=== PATIENT | female | born 1990 | race Caucasian/White ===

== ENCOUNTER → 2017-01-10 | Outpatient (CLI) | payer MEDICAID ==
--- NOTE | 2017-01-10 09:01 | WWHP ---
DATE OF SERVICE: 01/10/2017 CHIEF COMPLAINT: The patient is here for her routine gynecologic exam and for control. HPI: This is 26-year-old G0 with an LMP of 12/25/16. She had been taking 09/01. Her prescription ran out about a month ago. She has been using condoms since then. She states she has not had any problem with control pills. She had been on control pills for about 6 months. PAST MEDICAL HISTORY: Unremarkable. MEDICATIONS: 09/01 one daily up until one month ago. ALLERGIES: No known drug allergies. PAST SURGICAL HISTORY: [place] teeth removed in the past. PAST STEAM PRESS OPERATOR HISTORY: Menarche was at age 15. Menses had been regular every month. She has no history of STDs. SOCIAL HISTORY: She denies tobacco, alcohol, and drug use. She was recently in 10/27. 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 FAMILY HISTORY: Unremarkable. REVIEW OF SYSTEMS: Weight has been stable. She denies respiratory, cardiac, or GI problems. PHYSICAL EXAM: Blood pressure 124/87. Height 5 feet 10 inches, weight 162 pounds. Temperature 97.7, pulse 74. This a well-developed, well-nourished white female who is alert and oriented x3 in no acute distress. HEENT is within normal limits. NECK: Supple without mass thyromegaly. CHEST AND LUNGS: Clear to auscultation. HEART: Regular rate and rhythm. Breasts are without mass or discharge. Axillary exam is negative for adenopathy. BACK: Negative for CVA tenderness. ABDOMEN: Soft, nontender, without palpable masses. PELVIC EXAM: Normal external genitalia. Cervix and vagina appear normal. There is no unusual discharge. There is no cervical motion tenderness. The uterus is midposition, nongravid size and nontender. There are no palpable adnexal masses or tenderness. Rectal exam was deferred. EXTREMITIES: Nontender. IMPRESSION: A 26-year-old gynecology healthy female requesting to be restarted on oral contraception. PLAN: 1. Pap smear was performed. 2. Self breast examination was discussed. 3. GC and Chlamydia screening from the cervix was obtained. 4. The patient will be restarted on 09/01 and she will begin this on the Sunday following the onset of her next normal menstrual period. She will also use condoms through the first pack of pills. 5. She will return in one year.
== END | disposition home or self-care (01) ==
LOC: WWCWWP 07:58
PROVIDERS: ATTEND Obstetrics & Gynecology
DX: Z53.9 Procedure and treatment not carried out, unspecified reason (principal)

== ENCOUNTER → 2019-02-25 | Outpatient (CLI) | payer MEDICAID ==
[2019-02-25 12:32] LABS: African American GFR (CKD) 138.6 (60.0-200.0)
[2019-02-25 12:39] LABS: Vitamin D 25 Hydroxy 17.8 ng/mL (30.0-100.0)
[2019-02-25 12:40] LABS: HCG,Quantitative Serum 3.9 mIU/mL; T4, Free (Free Thyroxine) 1.2 ng/dL (0.80-1.80)
[2019-02-25 14:19] LABS: Thyroid Peroxidase Antibodies <28.0 U/mL (0.0-60.0)
[2019-02-26 06:59] LABS: Varicella IgM Antibody 0.46 INDEX (<=0.90)
[2019-02-26 14:07] LABS: Anti-Mullerian Hormone 6.32 ng/mL (0.69 - 13.39)
== END | disposition home or self-care (01) ==
LOC: LABWHC1 07:27
PROVIDERS: ATTEND Physician Assistant
DX: N92.6 Irregular menstruation, unspecified (principal)
CPT/HCPCS: 36415; 82306; 82397; 82565; 82670; 82947; 83001; 83036; 83525; 84146; 84402; 84403; 84439; 84443; 84450; 84460; 84481; 84520; 84702; 86376; 86762; 86787; 86800; 86850; 86900; 86901

== ENCOUNTER → 2019-03-18 | Outpatient (CLI) | payer MEDICAID | END | disposition home or self-care (01) | LOC: LABWHC1 07:20 | PROVIDERS: ATTEND Obstetrics & Gynecology Reproductive Endocrinology | DX: E03.9 Hypothyroidism, unspecified (principal) | CPT/HCPCS: 36415; 84443 ==

== ENCOUNTER → 2019-03-26 | Outpatient (CLI) | payer MEDICAID ==
[2019-03-26 08:27] LABS: Basophils % (A) 0 %; Eosinophils # (A) 0.1 k/uL (0-0.7); Eosinophils % (A) 2 %; HCT 39.6 % (34.0-46.0); HGB 13.3 gm/dL (11.4-16.0); Lymphocytes # (A) 2.8 k/uL (1.0-4.8); Lymphocytes % (A) 34 %; MCH 30.6 pg (25.0-35.0); MCHC 33.7 g/dL (31.0-37.0); MCV 90.8 fL (80.0-100.0); Monocytes # (A) 0.4 k/uL (0-1.0); Monocytes % (A) 5 %; Neutrophils # (A) 4.5 k/uL (1.3-7.7); Neutrophils % (A) 56 %; Platelet Count 287 k/uL (150-450); RBC 4.36 m/uL (3.80-5.40); RDW 14.4 % (11.5-15.5)
== END ==
LOC: LABPAT 07:36
PROVIDERS: ATTEND Obstetrics & Gynecology Obstetrics
DX: Z01.812 Encounter for preprocedural laboratory examination (principal); N84.0 Polyp of corpus uteri
CPT/HCPCS: 36415; 85025

== ENCOUNTER 2019-04-04 10:29 | Day surgery (SDC) | payer MEDICAID ==
[~2019-04-04 10:29] MED LIST: DEXAMETHASONE SOD PHOSPHATE 10 MG/ML 1 ML VIAL IV ONE; HYDROmorphone 0.5 MG/0.5 ML SYRINGE IVP PRN; LACTATED RINGERS 1,000 ML IV SCH; LIDOCAINE 1% 20 ML VIAL (10MG/ML) FOR IV START INTRADERMA PRN; MIDAZOLAM 2 MG/2 ML VIAL IV PRN; ONDANSETRON 4 MG/2 ML VIAL IVP ONE; Pre Op ABX Message 1 EACH MISC MISCELLANE ONE; SCOPOLAMINE 1.5MG/72HR PATCH TRANSDERM ONE
[2019-04-04] MEDS ORDERED: LACTATED RINGERS 1,000 ML IV ONE (11:01)
[2019-04-04] MEDS ORDERED: PROPOFOL 10 MG/ML 20 ML VIAL IV ONE (12:40)
[2019-04-04] MEDS ORDERED: LIDOCAINE 1% INJ 10MG/ML (20 ML MDV) ONE (12:40)
[2019-04-04] MEDS ORDERED: fentaNYL (PF) 50 MCG/ML 2 ML AMP ONE (12:40)
[2019-04-04] MEDS ORDERED: KETOROLAC 30 MG/ML 1 ML VIAL ONE (12:40)
[2019-04-04] MEDS ORDERED: MIDAZOLAM 2 MG/2 ML VIAL ONE (12:40)
[2019-04-04 13:20] VITALS: TEMP 98.5
--- NOTE | 2019-04-04 13:21 | P.OP ---
Date of Procedure: 04/04/19 Preoperative Diagnosis: Endometrial polyp Postoperative Diagnosis: Same Procedure(s) Performed: Hysteroscopy, dilation and curettage Anesthesia: MAC Surgeon: Anjelica Powell Estimated Blood Loss (ml): 5 IV fluids (ml): 200 Urine output (ml): 100 Pathology: other (An immature polyp, endometrial curettings) Condition: stable Disposition: PACU Indications for Procedure: Patient is really undergoing treatments for fertility with Dr. Sybil Santoyo MD Patient had an ultrasound and SIS revealing a polyp which she desires removal for fertility reasons. Operative Findings: Normal appearing endometrial cavity within the junction between the cavity and the cervix is small polyp was noted no other appendectomy maladies were noted. Description of Procedure: Patient was seen in the preoperative area and informed consent was obtained. Patient was counseled on the surgery and all cautions were answered. Patient was taken operating suite were general anesthesia was obtained without difficulty by the anesthesia department. She was then prepped and draped in the normal sterile fashion in the dorsal lithotomy position. A red rubber catheter was then used to drain the bladder clear yellow urine. Weighted speculum was placed in the posterior vaginal vault the anterior lip the cervix is visualized and grasped with a single-tooth tenaculum the endocervical canal was then dilated to 14-Persian. Hysteroscope was placed through the cervix and toward the endometrial cavity the above-noted findings were visualized. At this time hysteroscope was removed after much multiple pictures were taken. A gentle curettage was performed until a gritty texture was noted in all 4 quadrants of the endometrial cavity. The polyp was noted to be removed. The tooth tenaculum was taken off of the anterior lip of the cervix no bleeding was noted. All incisions were then removed from the patient's vaginal vault. Patient tolerated procedure well all counts were correct 2 and she was taken to the recovery suite awake and in stable condition.
[2019-04-04 13:51] VITALS: PULSE 68; RESP 18
[2019-04-04 14:08] VITALS: BP 110/71
== END 2019-04-04 14:34 | disposition home or self-care (01) ==
LOC: OR 10:29
PROVIDERS: ATTEND Obstetrics & Gynecology Obstetrics
DX: N84.0 Polyp of corpus uteri (principal); E07.9 Disorder of thyroid, unspecified; Z79.890 Hormone replacement therapy
CPT/HCPCS: 58558; 81025; 88305; J2250; J1100; J2405; J2001; J3010; J1885; J2704

== ENCOUNTER → 2019-04-25 | Outpatient (CLI) | payer MEDICAID | END | disposition home or self-care (01) | LOC: LABWHC1 07:46 | PROVIDERS: ATTEND Obstetrics & Gynecology Reproductive Endocrinology | DX: E03.9 Hypothyroidism, unspecified (principal) | CPT/HCPCS: 36415; 84443 ==

== ENCOUNTER → 2019-05-16 | Outpatient (CLI) | payer MEDICAID | END | disposition home or self-care (01) | LOC: LABWHC1 07:44 | PROVIDERS: ATTEND Obstetrics & Gynecology Reproductive Endocrinology | DX: E03.9 Hypothyroidism, unspecified (principal) | CPT/HCPCS: 36415; 84443 ==

== ENCOUNTER → 2019-06-17 | Outpatient (CLI) | payer MEDICAID | END | disposition home or self-care (01) | LOC: LABWHC1 07:31 | PROVIDERS: ATTEND Obstetrics & Gynecology Reproductive Endocrinology | DX: E03.9 Hypothyroidism, unspecified (principal) | CPT/HCPCS: 36415; 84443 ==

== ENCOUNTER → 2019-07-25 | Outpatient (CLI) | payer MEDICAID ==
[2019-07-25 08:07] LABS: HCT 35.4 % (34.0-46.0); MCH 30.4 pg (25.0-35.0); MCV 89.4 fL (80.0-100.0); Mean Platelet Volume 7.6; Platelet Count 218 k/uL (150-450); RBC 3.96 m/uL (3.80-5.40); RDW 12.3 % (11.5-15.5); WBC 8.8 k/uL (3.8-10.6)
[2019-07-25 11:57] LABS: T4, Free (Free Thyroxine) 1.2 ng/dL (0.80-1.80)
[2019-07-25 12:20] LABS: Hepatitis B Surface Antigen Non-Reactive (Non-Reactive)
[2019-07-25 15:18] LABS: HIV 1 AB Non-Reactive (Non-Reactive); HIV 2 AB Non-Reactive (Non-Reactive); HIV AB P24 Non-Reactive (Non-Reactive); HIV P24 AG Non-Reactive (Non-Reactive)
== END | disposition home or self-care (01) ==
LOC: LABWHC1 07:40
PROVIDERS: ATTEND Clinical Nurse Specialist Women's Health
DX: Z34.01 Encounter for supervision of normal first pregnancy, first trimester (principal)
CPT/HCPCS: 36415; 84439; 84443; 84481; 85027; 86762; 86780; 86850; 86900; 86901; 87086; 87340; 87390

== ENCOUNTER → 2019-11-19 | Outpatient (CLI) | payer MEDICAID ==
[2019-11-19 12:10] LABS: HCT 34.6 % (34.0-46.0); HGB 11.8 gm/dL (11.4-16.0); MCH 31.5 pg (25.0-35.0); MCHC 34.1 g/dL (31.0-37.0); MCV 92.2 fL (80.0-100.0); Mean Platelet Volume 7.8; Platelet Count 244 k/uL (150-450); RBC 3.75 m/uL (3.80-5.40); RDW 13.3 % (11.5-15.5); WBC 8.4 k/uL (3.8-10.6)
[2019-11-19 15:37] LABS: T4, Free (Free Thyroxine) 1.4 ng/dL (0.80-1.80)
== END | disposition home or self-care (01) ==
LOC: LABWHC1 10:32
PROVIDERS: ATTEND Obstetrics & Gynecology Obstetrics
DX: Z36.9 Encounter for antenatal screening, unspecified (principal)
CPT/HCPCS: 36415; 82950; 84439; 84443; 85027; 86850

== ENCOUNTER 2020-02-11 06:00 | Inpatient (IN) | payer MEDICAID ==
[2020-02-11] MEDS ORDERED: CITRIC ACID-SODIUM CITRATE 15 ML CUP PO ONE (11:13)
[2020-02-11] MEDS: LACTATED RINGERS 1,000 ML IV SCH ×2 (11:34→17:05)
[2020-02-11 11:54] LABS: Basophils % (A) 0 %; Eosinophils # (A) 0.2 k/uL (0-0.7); Eosinophils % (A) 2 %; HCT 33.6 % (34.0-46.0); HGB 11.3 gm/dL (11.4-16.0); Lymphocytes # (A) 1.9 k/uL (1.0-4.8); Lymphocytes % (A) 24 %; MCH 29.7 pg (25.0-35.0); MCHC 33.5 g/dL (31.0-37.0); MCV 88.4 fL (80.0-100.0); Mean Platelet Volume 8.2; Monocytes # (A) 0.5 k/uL (0-1.0); Monocytes % (A) 6 %; Neutrophils # (A) 5.2 k/uL (1.3-7.7); Neutrophils % (A) 66 %; Platelet Count 212 k/uL (150-450); RDW 13.7 % (11.5-15.5)
[2020-02-11] MEDS ORDERED: MORPHINE SULFATE (PF) 0.3 MG/0.3 ML SYR ONE (12:10)
[2020-02-11] MEDS ORDERED: OXYTOCIN 10 UNIT/ML 1 ML VIAL ONE (12:10)
[2020-02-11] MEDS ORDERED: ONDANSETRON 4 MG/2 ML VIAL ONE (12:10)
--- NOTE | 2020-02-11 13:01 | P.HPOB ---
History of Present Illness H&P Date: 02/11/20 Chief Complaint: IUP at 40 and 0, LGA This is a pleasant 29-year-old 1 para 0 at 40-0/7 weeks that presented to labor and delivery for scheduled primary secondary to LGA, ultrasound was done in the office this morning revealing a 10 pound infant, over 4500 g, greater than the 99th percentile. Of note the abdominal circumference was greater than the 99th percentile. Patient was counseled on induction of labor versus primary given size, risks of shoulder dystocia were discussed and general and all questions were answered. Patient decided to proceed with primary given size. Patient had been receiving routine care with myself since the first trimester. This care is been essentially uncomplicated. Today patient notes good movement she denies contractions or vaginal bleeding. Review of Systems Constitutional: Denies fatigue, Denies fever Ears, nose, mouth and throat: Denies headache Cardiovascular: Reports leg edema Respiratory: Denies dyspnea Gastrointestinal: Denies constipation, Denies diarrhea, Denies nausea, Denies vomiting Genitourinary: Reports Past Medical History Past Medical History: Thyroid Disorder Additional Past Medical History / Comment(s): CURRENT: UTERINE POLYP History of Any Multi-Drug Resistant Organisms: None Reported Additional Past Surgical History / Comment(s): WISDOM TEETH. D & C Past Anesthesia/Blood Transfusion Reactions: No Reported Reaction Additional Past Anesthesia/Blood Transfusion Reaction / Comment(s): HAS NEVER HAD GENERAL ANETHESIA Past Psychological History: No Psychological Hx Reported Smoking Status: Never smoker Past Alcohol Use History: Rare Past Drug Use History: None Reported - Past Family History Mother Family Medical History: No Reported History Medications and Allergies Home Medications Medication Instructions Recorded Confirmed Type Cholecalciferol (Vitamin D3) 1 tab PO DAILY 03/31/19 02/11/20 History [Vitamin D3] Levothyroxine Sodium [Synthroid] 50 mcg PO QAM 03/31/19 02/11/20 History Multivitamins, Thera [Multivitamin 1 tab PO DAILY 03/31/19 02/11/20 History (formulary)] Allergies Allergy/AdvReac Type Severity Reaction Status Date / Time No Known Allergies Allergy Verified 02/11/20 11:23 Exam Osteopathic Statement: *. No significant issues noted on an osteopathic structural exam other than those noted in the History and Physical/Consult. 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 in no acute distress, breathing is noted to be nonlabored, heart has regular rate and rhythm, abdomen is gravid, heart tones are be category 1 with no contractions, on cervical exam she is /50/high station Results Result Diagrams: 02/11/20 11:34 Abnormal Lab Results - Last 24 Hours (Table) 02/11/20 Range/Units 11:34 Hgb 11.3 L (11.4-16.0) gm/dL Hct 33.6 L (34.0-46.0) % Assessment and Plan (1) Term Current Visit: Yes Status: Acute Code(s): Z34.90 - ENCNTR FOR SUPRVSN OF N ORMAL , UNSP, UNSP TRIMESTER SNOMED Code(s): 37361546 (2) LGA (large for gestational age) fetus Current Visit: Yes Status: Acute Code(s): ELY2021 - SNOMED Code(s): 683089425 Plan: Planned primary given ultrasound estimation of GERD in the 99th percentile, 10 pounds. Patient is counseled on risks are reviewed and patient states understanding. We'll proceed with primary .
[2020-02-11] MEDS ORDERED: METOCLOPRAMIDE 5 MG/ML 2 ML VIAL IVP PRN (13:05)
[2020-02-11] MEDS ORDERED: NALOXONE 0.4 MG/ML 1 ML VIAL IV PRN (13:05)
[2020-02-11] MEDS ORDERED: ZOLPIDEM 5 MG TAB PO PRN (13:05)
[2020-02-11] MEDS ORDERED: diphenhydrAMINE 50 MG CAP PO PRN (13:05)
[2020-02-11] MEDS ORDERED: SIMETHICONE 80 MG CHEWABLE PO PRN (13:05)
[2020-02-11] MEDS ORDERED: ONDANSETRON 4 MG/2 ML VIAL IVP PRN (13:05)
[2020-02-11] MEDS ORDERED: diphenhydrAMINE 50 MG/ML 1 ML VIAL IVP PRN ×2 (13:05)
--- NOTE | 2020-02-11 13:05 | P.OP ---
Date of Procedure: 02/11/20 Preoperative Diagnosis: IUP at 40 and 0/sevenths weeks, LGA Postoperative Diagnosis: Same Procedure(s) Performed: Primary low transverse section Anesthesia: spinal Surgeon: Anjelica Powell Reefer Truck Driver #1: Tara Hernandez Estimated Blood Loss (ml): 600 IV fluids (ml): 900 Urine output (ml): 200 Pathology: none sent Condition: stable Disposition: PACU Indications for Procedure: This pleasant 29-year-old 1 para 0 at 40-0/7 weeks had an ultrasound today revealing a greater than 4500 g fetus, 10 pounds, greater than the 99th percentile. Patient was counseled on primary , versus induction of labor and received shoulder dystocia given size. Patient elected primary . Operative Findings: Normal uterus tubes and ovaries were appreciated. Viable male delivered at 1227, weight of 9 lbs. 1 oz. with Apgars of 9 and 9 at one and 5 minutes respectively. Description of Procedure: Patient was taken back to the operating suite where spinal anesthesia was found to be adequate by the anesthesia department. She was then prepped and draped in normal sterile fashion in the dorsal supine position. A Pfannenstiel skin incision was then made with the scalpel and carried through to the underlying layer of fascia. The fascia was then incised and extended laterally. The rectus muscles were then in the midline, the peritoneum was then identified and entered. The peritoneal incision was then extended superiorly and inferiorly with good visualization the bladder. The bladder blade was then inserted into the pelvis. The vesicouterine peritoneum was identified and the bladder flap was then created using sharp and blunt dissection. At this time the hysterotomy incision was made amniotomy was performed and clear fluid was obtained. The fetus encountered in a vertex presentation. was delivered in the usual fashion and handed off to awaiting RN. Prior to this the umbilical cord then doubly clamped and cut. The placenta was then delivered manually intact with a three-vessel cord being noted. The hysterotomy incision was then closed with 0 Vicryl in a running locked fashion 2. Hemostasis was appreciated. The pelvis then copiously irrigated, the hysterotomy site was inspected hemostasis was appreciated once again. The uterus was then returned to the abdomen. The gutters were then cleared of all clots and debris and the hysterotomy incision was inspected once again. At this time the fascia was then closed with 0 Vicryl in a running fashion from one lateral edge the other. Subcu tissue was irrigated and found to be hemostatic. This was closed with 3-0 Vicryl. The skin was then closed with 4-0 Vicryl in a subcuticular fashion. Steri-Strips and sterile dressings were applied as needed. All counts were noted be correct 2 patient and tolerated delivery well and are resting comfortably.
[2020-02-11] MEDS ORDERED: OXYTOCIN 20 UNITS/1000 ML NS 1,000 ML IV SCH (13:15)
[2020-02-11] MEDS ORDERED: ACETAMINOPHEN IV (For NPO) 1,000 MG in EMPTY BAG 1 BAG IVPB ONE (13:30)
[2020-02-11] MEDS ORDERED: IBUPROFEN IV 800 MG in SODIUM CHLORIDE 0.9% 250 ML IV ONE (13:30)
[2020-02-11] MEDS: diphenhydrAMINE 25 MG CAP PO PRN (15:30)
[2020-02-12] MEDS: LEVOTHYROXINE 50 MCG TAB PO SCH (05:45)
[2020-02-12 06:51] LABS: Basophils % (A) 0 %; Eosinophils # (A) 0.1 k/uL (0-0.7); Eosinophils % (A) 1 %; HCT 28.8 % (34.0-46.0); Hypochromasia Slight; Lymphocytes # (A) 1.4 k/uL (1.0-4.8); Lymphocytes % (A) 16 %; MCH 29.9 pg (25.0-35.0); MCHC 33.5 g/dL (31.0-37.0); MCV 89.2 fL (80.0-100.0); Mean Platelet Volume 8.2; Monocytes # (A) 0.4 k/uL (0-1.0); Monocytes % (A) 5 %; Neutrophils # (A) 6.4 k/uL (1.3-7.7); Neutrophils % (A) 77 %; Platelet Count 179 k/uL (150-450); RBC 3.23 m/uL (3.80-5.40); RDW 13.7 % (11.5-15.5); WBC 8.3 k/uL (3.8-10.6)
[2020-02-12 06:57] LABS: HGB 9.6 gm/dL (11.4-16.0)
[2020-02-12] MEDS: SENNOSIDES-DOCUSATE SODIUM 1 EACH TAB PO SCH ×3 (07:44→19:55)
[2020-02-12] MEDS: IBUPROFEN 600 MG TAB PO PRN ×3 (07:44→21:21)
[2020-02-12] MEDS: MULTIVITAMINS, THERA 1 EACH TAB PO SCH (07:44)
--- NOTE | 2020-02-12 08:31 | P.PNOBGPC ---
Subjective - Subjective Principal diagnosis: POD 1 LTCS, LGA Interval history: Patient is doing well. Overnight she states her pain is well-controlled. She is ambulating and voiding without difficulty. She is tolerating a regular diet. She notes her lochia to be scant. She is breast-feeding without difficulty. Patient reports: Reports appetite normal, Reports voiding normally, Reports pain well controlled, Reports ambulating normally : doing well, nursing well Objective - Vital Signs Latest vital signs: Vital Signs Temp Pulse Resp BP Pulse Ox 02/12/20 04:00 98.0 F 77 16 110/68 02/12/20 00:00 98.1 F 66 16 113/77 100 02/11/20 20:00 98.5 F 74 16 117/72 95 02/11/20 16:00 97.7 F 68 16 130/89 98 02/11/20 15:05 96.9 F L 65 14 116/82 97 02/11/20 14:35 60 14 126/80 98 02/11/20 14:05 64 14 112/72 98 02/11/20 13:50 96.2 F L 62 14 114/71 97 02/11/20 13:35 70 14 107/61 97 02/11/20 13:20 71 14 104/61 02/11/20 13:05 97 F L 83 14 102/58 99 Intake and Output 02/11/20 02/12/20 02/12/20 22:59 06:59 14:59 Output Total 350 Balance -350 Output: Urine 350 Uretheral ([place]) 350 Other: # Emeses 2 - Exam Extremities: Present: normal Abdomen: Present: normal appearance, soft Incision: Present: intact Uterus: Present: normal, firm - Labs Labs: Abnormal Lab Results - Last 24 Hours (Table) 02/11/20 02/12/20 Range/Units 11:34 06:22 RBC 3.23 L (3.80-5.40) m/uL Hgb 11.3 L 9.6 L D (11.4-16.0) gm/dL Hct 33.6 L 28.8 L (34.0-46.0) % Assessment and Plan (1) Term Current Visit: Yes Status: Acute Code(s): Z34.90 - ENCNTR FOR SUPRVSN OF NORMAL , UNSP, UNSP TRIMESTER SNOMED Code(s): 14474023 (2) LGA (large for gestational age) fetus Current Visit: Yes Status: Acute Code(s): PHD0758 - SNOMED Code(s): 596484510 (3) S/P section Current Visit: Yes Status: Acute Code(s): Z98.891 - HISTORY OF UTERINE SCAR FROM PREVIOUS SURGERY SNOMED Code(s): 537202596 Plan: This 29-year-old 1 now para 1 status post primary for suspected macrosomia with liveborn male 9 lbs. 1 oz. Patient is doing well postoperatively we will encourage increased ambulation today. Will plan to continue routine postoperative care and anticipate discharge home tomorrow.
[2020-02-12] MEDS: LACTATED RINGERS 1,000 ML IV SCH ×3 (09:08→09:09)
--- NOTE | 2020-02-12 09:16 | P.PN ---
Progress Note - Text Date: 02-12-20Time: 07:14 The patient is status post section Vital signs stable VAS: 0-10 Patient has no complaints of pain. The patient incurred some minimal itching yesterday, this itching is now subsiding. Pain meds to be managed by service.
[2020-02-12] MEDS: ACETAMINOPHEN TAB 325 MG TAB PO PRN ×2 (12:50→19:56)
[2020-02-12] MEDS: diphenhydrAMINE 25 MG CAP PO PRN (21:22)
[2020-02-13] MEDS: HYDROcodone/APAP 5-325MG 1 EACH TAB PO PRN ×2 (02:26→08:17)
[2020-02-13] MEDS: diphenhydrAMINE 25 MG CAP PO PRN (05:29)
[2020-02-13] MEDS: IBUPROFEN 600 MG TAB PO PRN (05:30)
[2020-02-13] MEDS: LEVOTHYROXINE 50 MCG TAB PO SCH (06:17)
[2020-02-13] MEDS: SENNOSIDES-DOCUSATE SODIUM 1 EACH TAB PO SCH (08:16)
[2020-02-13] MEDS: MULTIVITAMINS, THERA 1 EACH TAB PO SCH (08:17)
[2020-02-13 08:30] VITALS: BP 126/87; PULSE 63; RESP 16; TEMP 97.7
--- NOTE | 2020-02-13 09:36 | P.DS ---
Providers Date of admission: 02/11/20 11:13 Expected date of discharge: 02/13/20 Attending physician: Anjelica Powell Primary care physician: Stated None - Discharge Diagnosis(es) (1) Term Current Visit: Yes Status: Acute (2) LGA (large for gestational age) fetus Current Visit: Yes Status: Acute (3) S/P section Current Visit: Yes Status: Acute Hospital Course: This is a pleasant 29-year-old 1 now para 1 that presented to labor and delivery on 02/10 for primary secondary to suspected macrosomia. Patient was seen for routine visit on that today with an ultrasound result of a 10 lbs. 0 oz. , greater than 4500 g, greater than the 99th percentile. Of note the abdominal circumference was significantly enlarged. Risks were reviewed patient elected primary . For further details on the please see the operative report. Liveborn male was born at 1227, weight of 9 lbs. 1 oz. with Apgars of 9 and 9 at one and 5 minutes respectively. Patient has done well . On this post day #2 she is ambulating and voiding without difficulty. She is tolerating a regular diet without nausea or vomiting. She states her lochia is minimal. She is breast-feeding. She does does desire discharge home today. Patient Condition at Discharge: Good Plan - Discharge Summary New Discharge Prescriptions: No Action Multivitamins, Thera [Multivitamin (formulary)] 1 tab PO DAILY Levothyroxine Sodium [Synthroid] 50 mcg PO QAM Cholecalciferol (Vitamin D3) [Vitamin D3] 1 tab PO DAILY Discharge Medication List Cholecalciferol (Vitamin D3) [Vitamin D3] 1 tab PO DAILY 03/31/19 [History] Levothyroxine Sodium [Synthroid] 50 mcg PO QAM 03/31/19 [History] Multivitamins, Thera [Multivitamin (formulary)] 1 tab PO DAILY 03/31/19 [History] Follow up Appointment(s)/Referral(s): Anjelica Powell DO [Doctor of Osteopathic Medicine] - 2 Weeks Patient Instructions/Handouts: (DC), (GEN)
== END 2020-02-13 12:07 | disposition home or self-care (01) | DRG 788 ==
LOC: 4FBP 11:13
PROVIDERS: ADMIT Obstetrics & Gynecology Obstetrics; ATTEND Obstetrics & Gynecology Obstetrics
PROC: 10D00Z1 Extraction of Products of Conception, Low, Open Approach (ICD-10-PCS; principal; 2020-02-11 12:37)
DX: O36.63X0 Maternal care for excessive fetal growth, third trimester, not applicable or unspecified (principal); E07.9 Disorder of thyroid, unspecified; N84.0 Polyp of corpus uteri; O99.284 Endocrine, nutritional and metabolic diseases complicating childbirth; O99.89 Other specified diseases and conditions complicating pregnancy, childbirth and the puerperium; Z37.0 Single live birth; Z3A.40 40 weeks gestation of pregnancy; Z79.890 Hormone replacement therapy
CPT/HCPCS: 85025; 86850; 86870; 86880; 86900; 86901

== ENCOUNTER 2020-02-16 10:23 | Outpatient (CLI) | payer MEDICAID ==
[2020-02-16] MEDS ORDERED: hydrOXYzine HCL 50 MG/ML 1 ML VIAL IM PRN (10:28)
[2020-02-16 10:49] VITALS: PULSE 101; RESP 18; TEMP 96.8
[2020-02-16 10:55] LABS: Basophils % (A) 0 %; Eosinophils # (A) 0.3 k/uL (0-0.7); Eosinophils % (A) 4 %; HCT 33.2 % (34.0-46.0); HGB 10.9 gm/dL (11.4-16.0); Hypochromasia Slight; Lymphocytes # (A) 1.7 k/uL (1.0-4.8); Lymphocytes % (A) 22 %; MCH 29.2 pg (25.0-35.0); MCHC 32.8 g/dL (31.0-37.0); MCV 89.2 fL (80.0-100.0); Mean Platelet Volume 7.3; Monocytes # (A) 0.5 k/uL (0-1.0); Monocytes % (A) 6 %; Neutrophils # (A) 5.1 k/uL (1.3-7.7); Neutrophils % (A) 67 %; Platelet Count 313 k/uL (150-450); RBC 3.72 m/uL (3.80-5.40); RDW 14.1 % (11.5-15.5); WBC 7.7 k/uL (3.8-10.6)
[2020-02-16] MEDS ORDERED: LACTATED RINGERS 1,000 ML IV SCH (11:00)
[2020-02-16 11:03] LABS: ALT 21 U/L (4-34); AST 26 U/L (14-36); African American GFR (CKD) >90 (>60 ml/min/1.73 sqM); Albumin 3.4 g/dL (3.5-5.0); Alkaline Phosphatase 125 U/L (38-126); Anion Gap 7 mmol/L; Blood Urea Nitrogen 10 mg/dL (7-17); Carbon Dioxide 24 mmol/L (22-30); Chloride 107 mmol/L (98-107); Glucose 70 mg/dL (74-99); Non-African American GFR(CKD) >90 (>60 ml/min/1.73 sqM); Potassium 3.5 mmol/L (3.5-5.1); Sodium 138 mmol/L (137-145); Total Bilirubin 0.3 mg/dL (0.2-1.3); Total Protein 5.8 g/dL (6.3-8.2)
[2020-02-16 12:23] LABS: Appearance,Urine Clear (Clear); Bacteria,Urine Rare /hpf; Bilirubin,Urine Negative (Negative); Blood,Urine Moderate (Negative); Color,Urine Light Yellow; Glucose,Urine (UA) Negative (Negative); Ketones,Urine Negative (Negative); Leukocyte Esterase,Urine Negative (Negative); Nitrite,Urine Negative (Negative); PH, Urine 6.5 (5.0-8.0); Protein,Urine Negative (Negative); RBC,Urine 2 /hpf (0-5); Specific Gravity,Urine 1.004 (1.001-1.035); Squamous Epithelial Cell,Urine <1 /hpf (0-4); Urobilinogen,Urine <2.0 mg/dL (<2.0); WBC,Urine 1 /hpf (0-5)
--- NOTE | 2020-03-07 12:41 | P.MSEPDOC ---
Presenting Problems - Arrival Data Date of Arrival on Unit: 02/16/20 Time of Arrival on Unit: 10:23 Mode of Transport: Ambulatory - Complaint OB-Reason for Admission/Chief Complaint: Other Comment: pt presents to triage per Dr. Powell for rash that is on her arms, trunck, back, and lower legs and feet that has been getting worse for the last 5 days Medical History - Information : 1 Para: 1 Term: 1 : 0 Abortions: Spontaneous or Elective: 0 Number of Living Children: 0 - Gestational Age Gestational Age by LATOYA (wks/days): 40 Weeks and 5 Days Review of Systems - Review of Systems Constitutional: No problems Breast: No problems ENT: No problems Cardiovascular: No problems Respiratory: No problems Gastrointestinal: No problems Genitourinary: No problems Musculoskeletal: No problems Neurological: No problems Skin: Rash, Itching Vital Signs - Temperature Temperature: 96.8 F Temperature Source: Temporal Artery Scan - Pulse Right Brachial Pulse Rate: 101 Pulse Assessment Method: Automatic Cuff - Respirations Respiratory Rate: 18 Oxygen Delivery Method: Room Air Medical Screen Scoring (Pre) - Uterine Contractions Frequency: N/A Duration: N/A Intensity: N/A - Maternal Vital Signs Maternal Temperature: N/A Maternal Blood Pressure: N/A Signs of Preeclampsia: N/A Maternal Respirations: N/A - Maternal Trauma Maternal Trauma: N/A - Total Score - Baby A Total Score - Baby A: 0 - Total Score - Baby B Total Score - Baby B: 0 - Total Score - Baby C Total Score - Baby C: 0 - Level of Risk - Baby A Level of Risk - Baby A: Low (0-5) - Level of Risk - Baby B Level of Risk - Baby B: Low (0-5) - Level of Risk - Baby C Level of Risk - Baby C: Low (0-5) Physician Notification (Pre) - Physician Notified Physician Notified Date: 02/16/20 Physician Notified Time: 10:25 New Order Received: Yes - Notification Comment Comment: draw cbc, cmp, and obtain ua, fluid bolus of LR Medical Screen Scoring (Post) - Maternal Vital Signs Maternal Temperature: N/A Maternal Blood Pressure: N/A Signs of Preeclampsia: N/A Maternal Respirations: N/A - Pain Assessment Pain Location and Character: Generalized Pain Scale Used: Numeric (1 - 10) Pain Intensity: 2 Pain Management Goal: 2 Pain Behavior: Vocalization - Maternal Trauma Maternal Trauma: N/A - Total Score Total Score - Baby A: 0 Total Score - Baby B: 0 Total Score - Baby C: 0 - Post Treatment Level of Risk Post Treatment Level of Risk - Baby A: Low (0-5) Post Treatment Level of Risk - Baby B: Low (0-5) Post Treatment Level of Risk - Baby C: Low (0-5) Physician Notification (Post) - Physician Notified Physician/Practitioner Notified:: marleny Spoke With: marleny - Notification Comment Comment: dr bell Disposition - Disposition OB Disposition: Physician follow up in office, Discharge to home Discharge Date: 02/16/20 Discharge Time: 12:25 I agree with the RN Medical Screening Exam: Yes Risk & Benefit of care provided described in d/c instruction: Yes Diagnosis: RASH AND OTHER NONSPECIFIC SKIN ERUPTION
== END 2020-02-16 12:51 | disposition home or self-care (01) ==
LOC: FBPOP 10:23
PROVIDERS: ATTEND Obstetrics & Gynecology Obstetrics
DX: O99.89 Other specified diseases and conditions complicating pregnancy, childbirth and the puerperium (principal); R21 Rash and other nonspecific skin eruption; Z3A.40 40 weeks gestation of pregnancy
CPT/HCPCS: 99214; 96365; 96372; 80053; 85025; 81001; J3410

== ENCOUNTER → 2020-03-29 | Outpatient (CLI) | payer MEDICAID ==
[2020-03-29 15:46] LABS: T4, Free (Free Thyroxine) 1.2 ng/dL (0.80-1.80)
== END | disposition home or self-care (01) ==
LOC: LABWHC1 11:07
PROVIDERS: ATTEND Obstetrics & Gynecology Obstetrics
DX: E03.9 Hypothyroidism, unspecified (principal)
CPT/HCPCS: 36415; 84439; 84443

== ENCOUNTER → 2020-06-04 | Outpatient (CLI) | payer MEDICAID ==
[2020-06-04 11:12] LABS: T4, Free (Free Thyroxine) 1.1 ng/dL (0.80-1.80)
== END | disposition home or self-care (01) ==
LOC: LABWHC1 07:29
PROVIDERS: ATTEND Obstetrics & Gynecology Obstetrics
DX: E03.9 Hypothyroidism, unspecified (principal)
CPT/HCPCS: 36415; 84439; 84443

== ENCOUNTER → 2020-06-24 | Outpatient (CLI) | payer MEDICAID ==
[2020-06-24 09:21] LABS: HCT 35.2 % (34.0-46.0); HGB 11.8 gm/dL (11.4-16.0); MCH 28.8 pg (25.0-35.0); MCHC 33.6 g/dL (31.0-37.0); MCV 85.6 fL (80.0-100.0); Mean Platelet Volume 7.1; Platelet Count 252 k/uL (150-450); RBC 4.11 m/uL (3.80-5.40); RDW 14.3 % (11.5-15.5); WBC 8.6 k/uL (3.8-10.6)
[2020-06-24 14:51] LABS: T4, Free (Free Thyroxine) 1.1 ng/dL (0.80-1.80)
[2020-06-24 16:12] LABS: Hepatitis B Surface Antigen Non-Reactive (Non-Reactive)
== END | disposition home or self-care (01) ==
LOC: LABWHC1 07:23
PROVIDERS: ATTEND Obstetrics & Gynecology Obstetrics
DX: E03.9 Hypothyroidism, unspecified (principal)
CPT/HCPCS: 36415; 84439; 84443; 85027; 86762; 86780; 86850; 86900; 86901; 87086; 87340

== ENCOUNTER → 2020-10-13 | Outpatient (CLI) | payer MEDICAID ==
[2020-10-13 19:41] LABS: HCT 33.8 % (37.2-46.3); HGB 10.9 g/dL (12.0-15.0); MCH 30.8 pg (27.0-32.0); MCHC 32.2 g/dL (32.0-37.0); MCV 95.5 fL (80.0-97.0); Platelet Count 173 X 10*3/uL (140-440); RBC 3.54 X 10*6/uL (4.10-5.20); RDW 14.4 % (11.5-14.5); WBC 8.62 X 10*3/uL (4.50-10.00)
== END | disposition home or self-care (01) ==
LOC: LABWHC1 08:30
PROVIDERS: ATTEND Obstetrics & Gynecology Obstetrics
DX: Z36.9 Encounter for antenatal screening, unspecified (principal)
CPT/HCPCS: 36415; 82950; 84439; 84443; 85027; 86850; 86900; 86901

== ENCOUNTER 2020-12-29 09:57 | Inpatient (IN) | payer MEDICAID ==
[~2020-12-29 09:57] MED LIST changes: +CELLULOSE,OXIDIZED 1 EACH EACH MISCELLANE ONE; -DEXAMETHASONE SOD PHOSPHATE 10 MG/ML 1 ML VIAL IV ONE; -HYDROmorphone 0.5 MG/0.5 ML SYRINGE IVP PRN; -LACTATED RINGERS 1,000 ML IV SCH; -LIDOCAINE 1% 20 ML VIAL (10MG/ML) FOR IV START INTRADERMA PRN; -MIDAZOLAM 2 MG/2 ML VIAL IV PRN; -ONDANSETRON 4 MG/2 ML VIAL IVP ONE; -Pre Op ABX Message 1 EACH MISC MISCELLANE ONE; -SCOPOLAMINE 1.5MG/72HR PATCH TRANSDERM ONE
[2020-12-29] MEDS ORDERED: LACTATED RINGERS 1,000 ML IV ONE (10:31)
[2020-12-29] MEDS ORDERED: CITRIC ACID-SODIUM CITRATE 15 ML CUP PO ONE ×2 (10:31→15:30)
[2020-12-29 10:47] LABS: Basophils % (A) 0 %; Eosinophils # (A) 0.1 k/uL (0-0.7); Eosinophils % (A) 1 %; HCT 32.9 % (34.0-46.0); HGB 11.1 gm/dL (11.4-16.0); Lymphocytes # (A) 1.3 k/uL (1.0-4.8); Lymphocytes % (A) 15 %; MCH 29.8 pg (25.0-35.0); MCHC 33.6 g/dL (31.0-37.0); MCV 88.6 fL (80.0-100.0); Mean Platelet Volume 7.4; Monocytes # (A) 0.5 k/uL (0-1.0); Monocytes % (A) 6 %; Neutrophils # (A) 6.8 k/uL (1.3-7.7); Neutrophils % (A) 77 %; Platelet Count 200 k/uL (150-450); Poikilocytosis Slight; RBC 3.71 m/uL (3.80-5.40); WBC 8.9 k/uL (3.8-10.6)
[2020-12-29] MEDS ORDERED: CLINDAMYCIN 900 MG in DEXTROSE 5% IN WATER 50 ML IVPB ONE ×2 (11:00)
[2020-12-29] MEDS ORDERED: GENTAMICIN 400 MG in SODIUM CHLORIDE 0.9% 100 ML IVPB ONE (11:00)
[2020-12-29] MEDS: LACTATED RINGERS 1,000 ML IV SCH ×2 (15:31→22:00)
[2020-12-29] MEDS ORDERED: OXYTOCIN 10 UNIT/ML 1 ML VIAL ONE (16:21)
[2020-12-29] MEDS ORDERED: .MORPHINE SULFATE (INJ) 10 MG/ML SYRINGE ONE (16:21)
[2020-12-29] MEDS ORDERED: MORPHINE SULFATE (PF) 0.3 MG/0.3 ML SYR ONE (16:21)
[2020-12-29] MEDS ORDERED: KETOROLAC 15 MG/ML 1 ML VIAL ONE (16:21)
--- NOTE | 2020-12-29 17:22 | P.HPOB ---
History of Present Illness H&P Date: 12/29/20 Chief Complaint: IUP at 39-0/7 weeks, history of 1 desires repeat This is a 22-year-old that presents to labor and delivery for scheduled repeat section. Patient has been receiving routine care which has been essentially uncomplicated. Patient's prior was a primary for large for gestational age. Patient elects repeat with tubal ligation as she is done with childbearing. Patient denies concerns this morning she notes good f etal movement denies vaginal bleeding or loss of fluid. On bloodwork this patient has a blood type of A-, rubella status immune, B surface antigen negative, RPR nonreactive, group beta strep was negative Review of Systems Constitutional: Denies chills, Denies fatigue, Denies fever Ears, nose, mouth and throat: Denies headache Cardiovascular: Reports leg edema Respiratory: Denies dyspnea Gastrointestinal: Denies constipation, Denies diarrhea, Denies nausea, Denies vomiting Genitourinary: Reports Past Medical History Past Medical History: Thyroid Disorder Additional Past Medical History / Comment(s): CURRENT: UTERINE POLYP History of Any Multi-Drug Resistant Organisms: None Reported Past Surgical History: Section Additional Past Surgical History / Comment(s): WISDOM TEETH. D & C Past Anesthesia/Blood Transfusion Reactions: No Reported Reaction Additional Past Anesthesia/Blood Transfusion Reaction / Comment(s): HAS NEVER HAD GENERAL ANETHESIA Past Psychological History: No Psychological Hx Reported Smoking Status: Never smoker Past Alcohol Use History: None Reported, Rare Past Drug Use History: None Reported - Past Family History Mother Family Medical History: No Reported History Medications and Allergies Home Medications Medication Instructions Recorded Confirmed Type Cholecalciferol (Vitamin D3) 1 tab PO DAILY 03/31/19 12/29/20 History [Vitamin D3] Levothyroxine Sodium [Synthroid] 50 mcg PO QAM 03/31/19 12/29/20 History Multivitamins, Thera [Multivitamin 1 tab PO DAILY 03/31/19 12/29/20 History (formulary)] Allergies Allergy/AdvReac Type Severity Reaction Status Date / Time hydrocodone [From [place]] Allergy Severe Rash/Hives Verified 02/16/20 10:51 cephalexin [From Kef[place]] Allergy Rash/Hives Verified 12/29/20 10:28 Exam Osteopathic Statement: *. No significant issues noted on an osteopathic structural exam other than those noted in the History and Physical/Consult. 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 Results Result Diagrams: 12/29/20 10:25 Abnormal Lab Results - Last 24 Hours (Table) 12/29/20 Range/Units 10:25 RBC 3.71 L (3.80-5.40) m/uL Hgb 11.1 L (11.4-16.0) gm/dL Hct 32.9 L (34.0-46.0) % Assessment and Plan (1) H/O section Current Visit: Yes Status: Acute Code(s): Z98.891 - HISTORY OF UTERINE SCAR FROM PREVIOUS SURGERY SNOMED Code(s): 050957697 (2) Term Current Visit: No Status: Acute Code(s): Z34.90 - ENCNTR FOR SUPRVSN OF NORMAL , UNSP, UNSP TRIMESTER SNOMED Code(s): 68117145 Plan: Patient is admitted to labor and delivery for scheduled repeat section. is discussed and questions are answered. We'll proceed with repeat section tubal ligation.
--- NOTE | 2020-12-29 17:29 | P.OP ---
Date of Procedure: 12/29/20 Preoperative Diagnosis: IUP @ 39 0/7 weeks, history of 1, desires repeat Postoperative Diagnosis: Same Procedure(s) Performed: Repeat section Anesthesia: spinal Surgeon: Anjelica Powell Bronze Chaser #1: Taar Hernandez Estimated Blood Loss (ml): 327 IV fluids (ml): 300 Urine output (ml): 200 Pathology: none sent Condition: stable Disposition: observation Indications for Procedure: 30-year-old with prior history of primary performed for LGA, 9 pound baby. Patient desires repeat section with tubal ligation as she is done with childbearing. Operative Findings: Normal uterus tubes and ovaries were appreciated, viable male infant delivered at 1646, weight of 7 lbs. 10 oz. with Apgars of 8 and 9 at one and 5 minutes respect daily. was noted to be in a face presentation, delivered via vacuum assist Description of Procedure: Patient was taken back to the operating suite where spinal anesthesia was found be adequate by the anesthesia department. She was then prepped and draped in the normal sterile fashion in the dorsal supine position. A Pfannenstiel skin incision was made the scalpel and carried through the underlying layer of fascia. The fascia was then incised in the midline and the incision was extended laterally. Superior aspect of the fascial incision was grasped with Kojo clamps, elevated and underlying rectus muscles dissected off sharply. Attention was then turned to the inferior aspect of the fascial incision which was grasped kojo clamps, elevated and underlying rectus muscles dissected off sharply once again. The rectus muscles were in the midline the peritoneum was identified and entered. The incision was then extended superiorly and inferiorly with good visualization the bladder. The bladder blade was then inserted into the pelvis. The vesicouterine peritoneum was identified and the bladder flap was created using sharp and blunt dissection. A scalpel was used to make the hysterotomy incision amniotomy was performed and clear fluid was obtained. The infant was noted to be in a face presentation. Infant was then everted to vertex vacuum was applied and was delivered in the usual fashion. The umbilical cord was doubly clamped and cut and the infant was handed off to awaiting RN. Cord blood was then taken. The placenta was delivered manually intact with a three-vessel cord being noted. Uterus was then cleared of all clots and debris. The uterus was then delivered from the abdomen and hysterotomy incision was closed with 0 Vicryl in a running locked fashion hemostasis was appreciated. The Filshie clip applicator was then opened and applied to bilateral fallopian tubes according to truck mechanic's instructions. The uterus was then returned to the abdomen the gutters were cleared of all clots and debris. Uterine incision was inspected and found to be hemostatic Interceed was placed over the uterine incision. The fascia was then closed with 0 Vicryl in a running fashion from one lateral edge the other. Subcutaneous tissue was then irrigated found to be hemostatic and closed with 3-0 Vicryl. The skin was then closed with 4-0 Vicryl in a septic fashion. Steri-Strips and sterile dressings were applied. All counts were noted correct 2 at the end of the procedure. Patient and tolerated were procedure well and are resting comfortably.
[2020-12-29] MEDS ORDERED: ONDANSETRON 4 MG/2 ML VIAL IVP PRN (17:35)
[2020-12-29] MEDS ORDERED: NALOXONE 0.4 MG/ML 1 ML VIAL IV PRN (17:35)
[2020-12-29] MEDS ORDERED: diphenhydrAMINE 50 MG/ML 1 ML VIAL IVP PRN ×2 (17:35)
[2020-12-29] MEDS ORDERED: diphenhydrAMINE 50 MG CAP PO PRN (17:35)
[2020-12-29] MEDS ORDERED: SIMETHICONE 80 MG CHEWABLE PO PRN (17:35)
[2020-12-29] MEDS ORDERED: ZOLPIDEM 5 MG TAB PO PRN (17:35)
[2020-12-29] MEDS ORDERED: diphenhydrAMINE 25 MG CAP PO PRN (17:35)
[2020-12-29] MEDS ORDERED: METOCLOPRAMIDE 5 MG/ML 2 ML VIAL IVP PRN (17:35)
[2020-12-29] MEDS ORDERED: OXYTOCIN 30 UNITS/500 ML NS 30 UNIT in SALINE 1 500ML.BAG IV SCH (17:45)
[2020-12-29] MEDS: ACETAMINOPHEN IV (For NPO) 1,000 MG in EMPTY BAG 1 BAG IVPB SCH (19:04)
[2020-12-29] MEDS: SENNOSIDES-DOCUSATE SODIUM 1 EACH TAB PO SCH (23:25)
[2020-12-30] MEDS ORDERED: IBUPROFEN IV 800 MG in SODIUM CHLORIDE 0.9% 250 ML IV PRN ×2
[2020-12-30] MEDS: ACETAMINOPHEN IV (For NPO) 1,000 MG in EMPTY BAG 1 BAG IVPB SCH (01:45)
[2020-12-30] MEDS: IBUPROFEN 600 MG TAB PO SCH ×3 (03:40→17:07)
[2020-12-30 06:13] LABS: Basophils % (A) 0 %; Eosinophils % (A) 0 %; HCT 34.3 % (34.0-46.0); HGB 11.2 gm/dL (11.4-16.0); Lymphocytes # (A) 0.8 k/uL (1.0-4.8); Lymphocytes % (A) 11 %; MCH 29.4 pg (25.0-35.0); MCHC 32.7 g/dL (31.0-37.0); Mean Platelet Volume 7.6; Monocytes # (A) 0.3 k/uL (0-1.0); Monocytes % (A) 5 %; Neutrophils # (A) 6.3 k/uL (1.3-7.7); Neutrophils % (A) 83 %; Platelet Count 221 k/uL (150-450); Poikilocytosis Slight; RBC 3.81 m/uL (3.80-5.40); RDW 14.9 % (11.5-15.5); WBC 7.6 k/uL (3.8-10.6)
--- NOTE | 2020-12-30 07:48 | P.PN ---
Progress Note - Text Progress Note Date: 12/30/20 (487) Anesthesia Postop day 1 Subjective: Status Post section with Duramorph. Patient seen and examined. Doing well without complaint. VAS 2. Nausea vomiting and pruritus yesterday. All now resolved. Afebrile. Gross lower extremity strength intact. . Without apparent anesthetic complications. Objective: Vital signs reviewed Heart: Regular Rate Lungs: Good chest excursion Abdomen: Appears nondistended Assessment: Status post with Duramorph postop day 1 Plan: Continue current care with your medical management. Anticipated and the Duramorph around noon today you may see increased pain needs around this time.
[2020-12-30] MEDS: LEVOTHYROXINE 50 MCG TAB PO SCH (08:19)
[2020-12-30] MEDS: ACETAMINOPHEN TAB 500 MG TAB PO SCH ×3 (08:20→19:52)
[2020-12-30] MEDS: SENNOSIDES-DOCUSATE SODIUM 1 EACH TAB PO SCH ×2 (08:20→19:52)
--- NOTE | 2020-12-30 08:34 | P.PNOBGPC ---
Subjective - Subjective Principal diagnosis: POD 1 RCS Interval history: Patient did well overnight. She is ambulating and voiding without difficulty. She states her pain is well-controlled with oral Tylenol and ibuprofen. She is tolerating a regular diet without nausea or vomiting. She denies concerns. Patient reports: Reports appetite normal, Reports voiding normally, Reports pain well controlled, Reports ambulating normally : doing well Objective - Vital Signs Latest vital signs: Vital Signs Temp Pulse Resp BP Pulse Ox 12/30/20 04:00 98.1 F 70 16 110/68 100 12/29/20 23:44 98.1 F 78 16 116/66 98 12/29/20 19:15 73 16 108/67 100 12/29/20 18:45 96.8 F L 75 17 115/76 100 12/29/20 18:15 96.0 F L 64 16 113/65 100 12/29/20 18:00 62 17 111/63 100 12/29/20 17:45 73 17 108/63 99 12/29/20 17:30 75 17 108/59 98 12/29/20 17:15 96.1 F L 87 18 113/56 99 12/29/20 10:27 97.0 F L 84 18 126/64 99 Intake and Output 12/29/20 12/30/20 12/30/20 22:59 06:59 14:59 Intake Total 950 Output Total 400 600 Balance -400 350 Intake: IV 950 Output: Urine 400 400 Uretheral (Flores) 300 Emesis 200 Other: Voiding Method Indwelling Catheter Indwelling Catheter # Voids 1 # Emeses 2 - Exam Extremities: Present: normal, edema Abdomen: Present: normal appearance Incision: Present: normal, dry Uterus: Present: normal, firm - Labs Labs: Abnormal Lab Results - Last 24 Hours (Table) 12/29/20 12/30/20 Range/Units 10:25 05:45 RBC 3.71 L (3.80-5.40) m/uL Hgb 11.1 L 11.2 L (11.4-16.0) gm/dL Hct 32.9 L (34.0-46.0) % Lymphocytes # 0.8 L (1.0-4.8) k/uL Assessment and Plan (1) H/O section Current Visit: Yes Status: Acute Code(s): Z98.891 - HISTORY OF UTERINE SCAR FROM PREVIOUS SURGERY SNOMED Code(s): 355045106 (2) Term Current Visit: No Status: Acute Code(s): Z34.90 - ENCNTR FOR SUPRVSN OF NORMAL , UNSP, UNSP TRIMESTER SNOMED Code(s): 66041812 (3) S/P section Current Visit: No Status: Acute Code(s): Z98.891 - HISTORY OF UTERINE SCAR FROM PREVIOUS SURGERY SNOMED Code(s): 781929612 Plan: 22-year-old G2 now P2 status post repeat section. Patient is doing well postoperatively we will encourage increased ambulation today. Anticipate discharge home tomorrow.
[2020-12-30] MEDS: MULTIVITAMINS, THERA 1 EACH TAB PO SCH (11:12)
[2020-12-31 00:27] VITALS: RESP 16
[2020-12-31] MEDS: ACETAMINOPHEN TAB 500 MG TAB PO SCH ×2 (03:29→09:13)
[2020-12-31] MEDS: LACTATED RINGERS 1,000 ML IV SCH ×2 (04:48→09:31)
[2020-12-31] MEDS: IBUPROFEN 600 MG TAB PO SCH ×3 (04:48→06:04)
[2020-12-31] MEDS: LEVOTHYROXINE 50 MCG TAB PO SCH (06:04)
[2020-12-31] MEDS: SENNOSIDES-DOCUSATE SODIUM 1 EACH TAB PO SCH (07:59)
--- NOTE | 2020-12-31 09:06 | P.DS ---
Providers Date of admission: 12/29/20 09:57 Expected date of discharge: 12/31/20 Attending physician: Anjelica Powell Primary care physician: Stated None - Discharge Diagnosis(es) (1) H/O section Current Visit: Yes Status: Acute (2) Term Current Visit: No Status: Acute (3) S/P section Current Visit: No Status: Acute Hospital Course: This is a 30-year-old 2 now para 2 status post repeat section. Patient had here for secondary for large for gestational age and desired repeat. Patient was receiving routine care with myself which has been essentially uncomplicated. For full details on this patient please see the dictated history and physical Patient was admitted to labor and delivery and repeat section was completed without difficulty. Patient delivered a liveborn male at 1646, via vacuum assist secondary to face presentation weight of 7 lbs. 10 oz. with Apgars of 8 and 9 at one and 5 minutes respectively. For full details on the please see the operative report. Patient's postoperative course has been uneventful. On this postoperative day #2 she is ambulating and voiding without difficulty. She is tolerating a regular diet without nausea or vomiting. She states her pain is well-controlled. She would like discharge home. Patient Condition at Discharge: Good Plan - Discharge Summary New Discharge Prescriptions: No Action Multivitamins, Thera [Multivitamin (formulary)] 1 tab PO DAILY Levothyroxine Sodium [Synthroid] 50 mcg PO QAM Cholecalciferol (Vitamin D3) [Vitamin D3] 1 tab PO DAILY Discharge Medication List Cholecalciferol (Vitamin D3) [Vitamin D3] 1 tab PO DAILY 03/31/19 [History] Levothyroxine Sodium [Synthroid] 50 mcg PO QAM 03/31/19 [History] Multivitamins, Thera [Multivitamin (formulary)] 1 tab PO DAILY 03/31/19 [History] Follow up Appointment(s)/Referral(s): Anjelica Powell DO [Doctor of Osteopathic Medicine] - 2 Weeks Patient Instructions/Handouts: (DC), (GEN) Discharge Disposition: HOME SELF-CARE
[2020-12-31] MEDS: MULTIVITAMINS, THERA 1 EACH TAB PO SCH (09:13)
[2020-12-31 09:29] VITALS: BP 121/86; PULSE 74; TEMP 97.7
== END 2020-12-31 11:25 | disposition home or self-care (01) | DRG 785 ==
LOC: 4FBP 09:57
PROVIDERS: ADMIT Obstetrics & Gynecology Obstetrics; ATTEND Obstetrics & Gynecology Obstetrics
PROC: 0UB70ZZ Excision of Bilateral Fallopian Tubes, Open Approach (ICD-10-PCS; 2020-12-29)
PROC: 10D00Z1 Extraction of Products of Conception, Low, Open Approach (ICD-10-PCS; principal; 2020-12-29 12:00)
DX: O34.211 Maternal care for low transverse scar from previous cesarean delivery (principal); L29.9 Pruritus, unspecified; O32.3XX0 Maternal care for face, brow and chin presentation, not applicable or unspecified; O36.63X0 Maternal care for excessive fetal growth, third trimester, not applicable or unspecified; Z37.0 Single live birth; Z3A.39 39 weeks gestation of pregnancy; Z79.890 Hormone replacement therapy; Z30.2 Encounter for sterilization
CPT/HCPCS: 85025; 86850; 86870; 86880; 86900; 86901

== ENCOUNTER 2023-07-02 07:13 | Emergency (ER) | payer MEDICAID ==
[2023-07-02] MEDS ORDERED: MAG HYDROX/AL HYDROX/SIMETH 30 ML, HYOSCYAMINE ELIXIR 10 ML PO STA ×2 (07:35)
[2023-07-02] MEDS ORDERED: SODIUM CHLORIDE 0.9% 1,000 ML IV ONE (07:36)
--- NOTE | 2023-07-02 07:37 | ED ---
Abdominal Pain HPI - General Chief Complaint: Abdominal Pain Stated Complaint: Abdominal Pain Time Seen by Provider: 07/02/23 07:27 Source: patient, RN notes reviewed Mode of arrival: ambulatory Limitations: no limitations - History of Present Illness Initial Comments: 32-year-old female presents emergency Department chief complaint of midabdominal pain, burning sensation. Patient states his been off for last 2 days. She suspects she might account. she states she has decreased appetite denies any significant vomiting diarrhea constipation or dysuria no hematuria denies any chance she's had no prior abdominal surgeries she states she's tried some Motrin but that did not help her abdominal discomfort. Patient offers no other complaints. - Related Data Home Medications Medication Instructions Recorded Confirmed Cholecalciferol (Vitamin D3) 1 tab PO DAILY 03/31/19 12/29/20 [Vitamin D3] Levothyroxine Sodium [Synthroid] 50 mcg PO QAM 03/31/19 12/29/20 Multivitamins, Thera [Multivitamin 1 tab PO DAILY 03/31/19 12/29/20 (formulary)] Previous Rx's Medication Instructions Recorded Famotidine [Pepcid] 20 mg PO BID #28 tablet 07/02/23 Ondansetron Odt [Zofran Odt] 4 mg PO Q8HR PRN #10 tab 07/02/23 Allergies Allergy/AdvReac Type Severity Reaction Status Date / Time cephalexin [From Keflex] Allergy Rash/Hives Verified 07/02/23 07:22 Review of Systems ROS Statement: Those systems with pertinent positive or pertinent negative responses have been documented in the HPI. ROS Other: All systems not noted in ROS Statement are negative. Past Medical History Past Medical History: Thyroid Disorder Additional Past Medical History / Comment(s): CURRENT: UTERINE POLYP History of Any Multi-Drug Resistant Organisms: None Reported Past Surgical History: Section Additional Past Surgical History / Comment(s): WISDOM TEETH. D & C Past Anesthesia/Blood Transfusion Reactions: No Reported Reaction Additional Past Anesthesia/Blood Transfusion Reaction / Comment(s): HAS NEVER HAD GENERAL ANETHESIA Past Psychological History: No Psychological Hx Reported Smoking Status: Never smoker Past Alcohol Use History: None Reported, Rare Past Drug Use History: None Reported - Past Family History Mother Family Medical History: No Reported History General Exam Limitations: no limitations General appearance: alert, in no apparent distress Head exam: Present: atraumatic, normocephalic, normal inspection Neck exam: Present: normal inspection. Absent: tenderness, meningismus, lymphadenopathy Respiratory exam: Present: normal lung sounds bilaterally. Absent: respiratory distress, wheezes, rales, rhonchi, stridor Cardiovascular Exam: Present: regular rate, normal rhythm, normal heart sounds. Absent: systolic murmur, diastolic murmur, rubs, gallop, clicks GI/Abdominal exam: Present: soft, tenderness, normal bowel sounds. Absent: distended, guarding, rebound, rigid Back exam: Absent: CVA tenderness (R), CVA tenderness (L) Neurological exam: Present: alert, oriented X3 Skin exam: Present: warm, dry, intact, normal color. Absent: rash Course Vital Signs 07/02/23 07:20 Temperature 98.1 F Pulse Rate 108 H Respiratory 20 Rate Blood Pressure 150/90 O2 Sat by Pulse 99 Oximetry Medical Decision Making - Medical Decision Making Was pt. sent in by a medical professional or institution (, PA, INDUSTRIAL LOCOMOTIVE OPERATOR, urgent ca re, hospital, or correction...) When possible be specific @ [N] Did you speak to anyone other than the patient for history (EMS, parent, family, police, friend...)? What history was obtained from this source @ [N] Did you review nursing and triage notes (agree or disagree)? Why? @ [I reviewed and agree with nursing and triage note] Were old charts reviewed (outside hosp., previous admission, EMS record, old EKG, old radiological studies, urgent care reports/EKG's, correction records)? Report findings @ [No old charts were reviewe] Differential Diagnosis (chest pain, altered mental status, abdominal pain women, abdominal pain men, vaginal bleeding, weakness, fever, dyspnea, syncope, headache, dizziness, GI bleed, back pain, seizure, CVA, palpatations, mental health, musculoskeletal)? @ -Differential Abdominal Pain Women: Appendicitis, Cholecystitis, diverticulosis, ischemic bowel, pancreatitis, hepatitis, UTI, gastroenteritis, AAA, incarcerated hernia, bowel obstruction, constipation, inflammatory bowel, hepatitis, peptic ulcer disease, splenic infarction, perforated viscus, vulvitis, ovarian torsion, PID, kidney stone, placenta abruption, this is not meant to be an all-inclusive list] EKG interpreted by me (3pts min.). @ None X-rays interpreted by me (1pt min.). @ -None done CT interpreted by me (1pt min.). @ -None done U/S interpreted by me (1pt. min.). @ -None done What testing was considered but not performed or refused? (CT, X-rays, U/S, labs)? Why? @ -None What meds were considered but not given or refused? Why? @ -None Did you discuss the management of the patient with other professionals (professionals i.e. DrDawn, PA, INDUSTRIAL LOCOMOTIVE OPERATOR, lab, RT, psych nurse, social sciences chair, supervisor patching, teacher, optics technical officer, case specialist)? Give summary @ -No Was smoking cessation discussed for >3mins.? @ -No Was critical care preformed (if so, how long)? @ -No Were there social determinants of health that impacted care today? How? (Homelessness, low income, unemployed, alcoholism, drug addiction, transportation, low edu. Level, literacy, decrease access to med. care, long-term, rehab)? @ -No Was there de-escalation of care discussed even if they declined (Discuss DNR or withdrawal of care, Hospice)? DNR status @ -No What co-morbidities impacted this encounter? (DM, HTN, Smoking, COPD, CAD, Cancer, CVA, ARF, Chemo, Hep., AIDS, mental health diagnosis, sleep apnea, morbid obesity)? @ -None Was patient admitted / discharged? Hospital course, mention meds given and route, prescriptions, significant lab abnormalities, going to OR and other pertinent info. @ -Discharged left wrist there is unremarkable. Do believe this related to her reflux, underlying gastritis type issue. Patient will be started on Pepcid with follow-up PCP, GI. Undiagnosed new problem with uncertain prognosis? @ -No Drug Therapy requiring intensive monitoring for toxicity (Heparin, Nitro, Insulin, Cardizem)? @ -No Were any procedures done? @ -No Diagnosis/symptom? @ -Abdominal pain Acute, or Chronic, or Acute on Chronic? @ -Acute Uncomplicated (without systemic symptoms) or Complicated (systemic symptoms)? @ -[Uncomplicated Side effects of treatment? @ -No Exacerbation, Progression, or Severe Exacerbation? @ -No Poses a threat to life or bodily function? How? (Chest pain, [place], [place], pneumonia, PE, COPD, DKA, ARF, appy, cholecystitis, CVA, Diverticulitis, Homicidal, Suicidal, threat to staff... and all critical care pts) @ -No - Lab Data Result diagrams: 07/02/23 07:47 07/02/23 07:47 Lab Results 07/02/23 07/02/23 07/02/23 Range/Units 07:47 07:47 07:47 WBC 6.7 (3.8-10.6) k/uL RBC 4.37 (3.80-5.40) m/uL Hgb 13.5 (11.4-16.0) gm/dL Hct 39.3 (34.0-46.0) % MCV 89.8 (80.0-100.0) fL MCH 30.8 (25.0-35.0) pg MCHC 34.3 (31.0-37.0) g/dL RDW 12.3 (11.5-15.5) % Plt Count 266 (150-450) k/uL MPV 7.5 Neutrophils % 69 % Lymphocytes % 24 % Monocytes % 4 % Eosinophils % 1 % Basophils % 0 % Neutrophils # 4.7 (1.3-7.7) k/uL Lymphocytes # 1.6 (1.0-4.8) k/uL Monocytes # 0.3 (0-1.0) k/uL Eosinophils # 0.1 (0-0.7) k/uL Basophils # 0.0 (0-0.2) k/uL Sodium (137-145) mmol/L Potassium (3.5-5.1) mmol/L Chloride (98-107) mmol/L Carbon Dioxide (22-30) mmol/L Anion Gap mmol/L BUN (7-17) mg/dL Creatinine (0.52-1.04) mg/dL Est GFR (CKD-EPI)AfAm (>60 ml/min/1.73 sqM) Est GFR (CKD-EPI)NonAf (>60 ml/min/1.73 sqM) Glucose (74-99) mg/dL Calcium (8.4-10.2) mg/dL Total Bilirubin (0.2-1.3) mg/dL AST (14-36) U/L ALT (4-34) U/L Alkaline Phosphatase (38-126) U/L Total Protein (6.3-8.2) g/dL Albumin (3.5-5.0) g/dL Lipase (23-300) U/L Urine Color Colorless Urine Appearance Clear (Clear) Urine pH 6.0 (5.0-8.0) Ur Specific [place] 1.003 (1.001-1.035) Urine Protein Negative (Negative) Urine Glucose (UA) Negative (Negative) Urine Ketones Negative (Negative) Urine Blood Negative (Negative) Urine Nitrite Negative (Negative) Urine Bilirubin Negative (Negative) Urine Urobilinogen <2.0 (<2.0) mg/dL Ur Leukocyte Esterase Negative (Negative) Urine HCG, Qual Not Detected (Not Detectd) 07/02/23 Range/Units 07:47 WBC (3.8-10.6) k/uL RBC (3.80-5.40) m/uL Hgb (11.4-16.0) gm/dL Hct (34.0-46.0) % MCV (80.0-100.0) fL MCH (25.0-35.0) pg MCHC (31.0-37.0) g/dL RDW (11.5-15.5) % Plt Count (150-450) k/uL MPV Neutrophils % % Lymphocytes % % Monocytes % % Eosinophils % % Basophils % % Neutrophils # (1.3-7.7) k/uL Lymphocytes # (1.0-4.8) k/uL Monocytes # (0-1.0) k/uL Eosinophils # (0-0.7) k/uL Basophils # (0-0.2) k/uL Sodium 140 (137-145) mmol/L Potassium 3.6 (3.5-5.1) mmol/L Chloride 105 (98-107) mmol/L Carbon Dioxide 25 (22-30) mmol/L Anion Gap 10 mmol/L BUN 6 L (7-17) mg/dL Creatinine 0.62 (0.52-1.04) mg/dL Est GFR (CKD-EPI)AfAm >90 (>60 ml/min/1.73 sqM) Est GFR (CKD-EPI)NonAf >90 (>60 ml/min/1.73 sqM) Glucose 113 H (74-99) mg/dL Calcium 9.7 (8.4-10.2) mg/dL Total Bilirubin 0.5 (0.2-1.3) mg/dL AST 24 (14-36) U/L ALT 20 (4-34) U/L Alkaline Phosphatase 53 (38-126) U/L Total Protein 7.5 (6.3-8.2) g/dL Albumin 4.7 (3.5-5.0) g/dL Lipase 55 (23-300) U/L Urine Color Urine Appearance (Clear) Urine pH (5.0-8.0) Ur Specific [place] (1.001-1.035) Urine Protein (Negative) Urine Glucose (UA) (Negative) Urine Ketones (Negative) Urine Blood (Negative) Urine Nitrite (Negative) Urine Bilirubin (Negative) Urine Urobilinogen (<2.0) mg/dL Ur Leukocyte Esterase (Negative) Urine HCG, Qual (Not Detectd) Disposition Clinical Impression: Abdominal pain Disposition: HOME SELF-CARE Condition: Stable Instructions (If sedation given, give patient instructions): Abdominal Pain (ED) Additional Instructions: Please return to the Emergency Department if symptoms worsen or any other concerns. Prescriptions: Famotidine [Pepcid] 20 mg PO BID #28 tablet Ondansetron Odt [Zofran Odt] 4 mg PO Q8HR PRN #10 tab PRN Reason: Nausea Is patient prescribed a controlled substance at d/c from ED?: No Referrals: Sis Mahajan MD [Primary Care Provider] - 1-2 days Noni Hdz MD [STAFF PHYSICIAN] - 1-2 days Time of Disposition: 08:46
[2023-07-02 08:03] LABS: Basophils % (A) 0 %; Eosinophils # (A) 0.1 k/uL (0-0.7); Eosinophils % (A) 1 %; HCT 39.3 % (34.0-46.0); HGB 13.5 gm/dL (11.4-16.0); Lymphocytes # (A) 1.6 k/uL (1.0-4.8); Lymphocytes % (A) 24 %; MCH 30.8 pg (25.0-35.0); MCHC 34.3 g/dL (31.0-37.0); MCV 89.8 fL (80.0-100.0); Mean Platelet Volume 7.5; Monocytes # (A) 0.3 k/uL (0-1.0); Monocytes % (A) 4 %; Neutrophils # (A) 4.7 k/uL (1.3-7.7); Neutrophils % (A) 69 %; Platelet Count 266 k/uL (150-450); RBC 4.37 m/uL (3.80-5.40); RDW 12.3 % (11.5-15.5); WBC 6.7 k/uL (3.8-10.6)
[2023-07-02 08:17] LABS: Appearance,Urine Clear (Clear); Bilirubin,Urine Negative (Negative); Blood,Urine Negative (Negative); Color,Urine Colorless; Glucose,Urine (UA) Negative (Negative); Ketones,Urine Negative (Negative); Leukocyte Esterase,Urine Negative (Negative); Nitrite,Urine Negative (Negative); Protein,Urine Negative (Negative); Specific Gravity,Urine 1.003 (1.001-1.035); Urobilinogen,Urine <2.0 mg/dL (<2.0)
[2023-07-02 08:24] LABS: ALT 20 U/L (4-34); AST 24 U/L (14-36); African American GFR (CKD) >90 (>60 ml/min/1.73 sqM); Albumin 4.7 g/dL (3.5-5.0); Alkaline Phosphatase 53 U/L (38-126); Anion Gap 10 mmol/L; Blood Urea Nitrogen 6 mg/dL (7-17); Calcium 9.7 mg/dL (8.4-10.2); Carbon Dioxide 25 mmol/L (22-30); Chloride 105 mmol/L (98-107); Glucose 113 mg/dL (74-99); Lipase 55 U/L (23-300); Non-African American GFR(CKD) >90 (>60 ml/min/1.73 sqM); Potassium 3.6 mmol/L (3.5-5.1); Sodium 140 mmol/L (137-145); Total Bilirubin 0.5 mg/dL (0.2-1.3); Total Protein 7.5 g/dL (6.3-8.2)
[2023-07-02 09:31] VITALS: BP 113/77; PULSE 66; RESP 16; TEMP 98
== END 2023-07-02 09:10 | disposition home or self-care (01) ==
LOC: EC 07:13
DX: R10.9 Unspecified abdominal pain (principal); E07.9 Disorder of thyroid, unspecified; Z79.890 Hormone replacement therapy; Z88.1 Allergy status to other antibiotic agents
CPT/HCPCS: 36415; 80053; 81003; 81025; 83690; 85025; 96360; 99284